=== PATIENT | male | born 1980 | race Caucasian/White ===

== ENCOUNTER 2020-07-17 21:53 | Emergency (ER) | payer BC ==
[2020-07-17] MEDS ORDERED: ACET/COD 300 MG/30 MG STARTER PACK 6 TAB BTL PO STA (23:36)
[2020-07-17] MEDS ORDERED: MORPHINE SULFATE 4 MG/ML SYRINGE IM STA (23:36)
[2020-07-17] MEDS ORDERED: LIDOCAINE 1% INJ 10MG/ML (20 ML MDV) SQ ONE (23:36)
[2020-07-17] MEDS ORDERED: SULFAMETH-TMP DS STARTER PACK 2 TAB BTL PO STA (23:36)
--- NOTE | 2020-07-17 23:38 | ED ---
Skin/Abscess/FB HPI - General Chief complaint: Skin/Abscess/Foreign Body Stated complaint: Cyst on tailbone Time Seen by Provider: 07/17/20 22:32 Source: patient Mode of arrival: ambulatory Limitations: no limitations - History of Present Illness Initial comments: 40-year-old male patient presents to the emergency department today for evaluation of abscess to his tailbone. Patient states that he has had pain, swelling, redness to the area for the last couple of days. States that it feels worse today. States he has had this in the past and has been drained. Denies any fever or chills. Denies nausea or vomiting. States he did try to poke it with a needle at nothing came out. Patient denies any recent rash, cough, shortness of breath, chest pain, abdominal pain, nausea, vomiting, diarrhea, constipation, back pain, numbness, tingling, dizziness, weakness, hematuria, dysuria, urinary urgency, urinary frequency, headache, visual changes, or any other complaints. - Related Data Previous Rx's Medication Instructions Recorded Ibuprofen [Motrin] 600 mg PO Q8HR PRN #30 tab 07/18/20 Sulfamethoxazole/Trimethoprim 1 each PO BID #20 tablet 07/18/20 [Bactrim DS 800-160 mg] Allergies Allergy/AdvReac Type Severity Reaction Status Date / Time No Known Allergies Allergy Verified 07/17/20 22:03 Review of Systems ROS Statement: Those systems with pertinent positive or pertinent negative responses have been documented in the HPI. ROS Other: All systems not noted in ROS Statement are negative. Past Medical History Past Medical History: GERD/Reflux, Hypertension History of Any Multi-Drug Resistant Organisms: None Reported Past Surgical History: Orthopedic Surgery Past Psychological History: No Psychological Hx Reported Smoking Status: Never smoker Past Alcohol Use History: None Reported Past Drug Use History: None Reported General Exam Limitations: no limitations General appearance: alert, in no apparent distress, other (This is a well- developed, well-nourished adult male patient in no acute distress. Vital signs upon presentation are temperature 98.4F, pulse 107, respirations 18, blood pressure 129/81, pulse ox 100% on room air.) Eye exam: Present: normal appearance, PERRL, EOMI. Absent: scleral icterus, conjunctival injection, periorbital swelling ENT exam: Present: normal exam, normal oropharynx, mucous membranes moist Respiratory exam: Present: normal lung sounds bilaterally. Absent: respiratory distress, wheezes, rales, rhonchi, stridor Cardiovascular Exam: Present: regular rate, normal rhythm, normal heart sounds. Absent: systolic murmur, diastolic murmur, rubs, gallop, clicks Neurological exam: Present: alert, oriented X3, CN II-XII intact Psychiatric exam: Present: normal affect, normal mood Skin exam: Present: warm, dry, intact, normal color. Absent: rash Expanded Type of lesion: Present: abscess (4x3 area of erythema and swelling noted to the sacral region. Tenderness. No drainage. No perianal tenderness noted.) Course Vital Signs 07/17/20 07/18/20 22:03 00:22 Temperature 98.4 F 98.9 F Pulse Rate 107 H 100 Respiratory 18 19 Rate Blood Pressure 129/81 152/93 O2 Sat by Pulse 100 98 Oximetry Procedures - [place] Protocol (Time Out) Procedure Performed:: Abscess incision and drainage Performing Provider: Chloé Crews Nurse: Donovan Yeung Timeout Date: 07/17/20 Timeout Time: 23:50 Patient Identification (2 identifiers required): Verbal, Arm Band, Name, Birthdate Patient/Legal Service Center Manager has Confirmed: Identity, Site, Procedure, Consent Site: Sacrum Site Marked: Yes Site Verified With Patient/Guardian: Yes Final Confirmation: Procedure, Site, Laterality - Incision & Drainage Consent Obtained: verbal consent Indication: abscess Site: other (sacral) Size (cm): 4 Anesthetic Used: lidocaine 1% Amount (mLs): 3 I&D Cleaning Method: Chloroprep Scalpel Used: #11 I&D Drainage Obtained: Pus, Blood Culture Obtained?: Yes Patient Tolerated Procedure: well, no complications Medical Decision Making - Medical Decision Making 40 year-old male patient presented to the emergency department for evaluation of swelling, redness, and pain to the sacral area. Physical exam revealed pilonoidal abscess. This was drained as documented. Patient tolerated the procedure well. Culture was obtained. Started on Bactrim. Educated regarding sitz baths and warm compresses. He is instructed to follow-up with the primary care physician for recheck in 1-2 days. He wants to discuss follow-up with surgeon with his doctor. Return parameters discussed in detail. He verbalizes understanding and agrees with this plan. My attending is Dr. Enciso. Disposition Clinical Impression: Pilonidal abscess Disposition: HOME SELF-CARE Condition: Good Instructions (If sedation given, give patient instructions): Abscess Incision and Drainage (ED), Sitz Bath (DC) Additional Instructions: Apply warm compresses or do warm sitz bath 3-4 times daily. Complete antibiotic prescription in full. Follow-up with your primary care physician for recheck in 1-2 days. Discuss referral to surgery. Return for any new, worsening, or concerning symptoms. Prescriptions: Sulfamethoxazole/Trimethoprim [Bactrim DS 800-160 mg] 1 each PO BID #20 tablet Ibuprofen [Motrin] 600 mg PO Q8HR PRN #30 tab PRN Reason: Pain Is patient prescribed a controlled substance at d/c from ED?: No Referrals: Rafa Raygoza MD [Primary Care Provider] - 1-2 days
[2020-07-18 00:23] VITALS: BP 152/93; PULSE 100; RESP 19; TEMP 98.9
== END 2020-07-18 00:22 | disposition home or self-care (01) ==
LOC: EC 21:53
DX: L05.01 Pilonidal cyst with abscess (principal); I10 Essential (primary) hypertension
CPT/HCPCS: 87070; 87205; 99283; 10080; 96372 ×2; J2270; J2001; 87077; 87186

== ENCOUNTER 2024-08-11 07:11 | Day surgery (SDC) | payer BC ==
[2024-08-10 08:41] VITALS: BMI 29.0
[2024-08-11] MEDS: IV FLUID CONTINUATION 1,000 ML IV ONE (07:38)
[2024-08-11] MEDS: LACTATED RINGERS 1,000 ML IV SCH (07:38)
[2024-08-11 07:43] VITALS: RESP 14; TEMP 97.5
[2024-08-11] MEDS ORDERED: LIDOCAINE 1% INJ 10MG/ML (20 ML MDV) ONE (08:32)
[2024-08-11] MEDS ORDERED: fentaNYL (PF) 50 MCG/ML 2 ML AMP ONE (08:32)
[2024-08-11] MEDS ORDERED: MIDAZOLAM 2 MG/2 ML VIAL ONE (08:32)
[2024-08-11] MEDS ORDERED: PROPOFOL 10 MG/ML 20 ML VIAL IV ONE (08:32)
--- NOTE | 2024-08-11 08:59 | P.PCN ---
Date of Procedure: 08/11/24 Procedure(s) Performed: Brief history: Patient is a pleasant 44-year-old white male scheduled for an elective upper endoscopy as well as colonoscopy as a part of evaluation of GERD and rectal bleeding for the last few months duration. Procedure performed: Esophagogastroduodenoscopy with biopsy Colonoscopy with biopsy Preoperative diagnosis: GERD Rectal bleeding [place]est[place]: [facility] [place] Procedure: After informed consent was obtained from the patient was brought into the endoscopy unit and IV sedation was administered by anesthesia under continuous monitoring. Initially upper endoscopy was done. The Olympus GF 160 video endoscope was inserted inserted into the mouth and esophagus intubated without any difficulty and was gradually advanced into the stomach and duodenum and carefully examined. The bulb and second part of the duodenum and mild scalloping of the mucosa and biopsies were done from this area to rule out celiac disease. The scope was then withdrawn into the stomach adequately insufflated with air and upon careful examination the antrum and body, cardia and fundus appeared normal. The scope was then withdrawn into the esophagus. Small hiatal hernia noted. The GE junction was located at 40 cm to the incisors. It appeared regular with superficial erosions consistent with LA gr olinda B reflux esophagitis. There was a 5 mm capacity mucosa which was biopsied. Rest of the esophagus appeared normal. Patient tolerated the procedure well. At this time the patient continued to remain sedation. Initial digital rectal examination revealed a mass.. Olympus CF 160 video colonoscope was then inserted into the rectum and gradually advanced to the cecum without any difficulty. Careful examination was performed as the scope was gradually being withdrawn. The prep was excellent. The cecum, ascending colon, transverse colon, descending colon, sigmoid colon appeared normal. In the distal rectum there was a 4 cm ulcerated mass approximately 4 cm from the dentate line status post multiple biopsies. Retroflexion was performed in the rectum and no lesions were noted. Patient tolerated the procedure well. Impression: 1. Upper endoscopy revealed continuation of the distal esophagus consistent with LA grade B reflux esophagitis, short segment Gamez's esophagus and small hiatal hernia 2. Colonoscopy revealed a 4 cm distal rectal ulcerated mass approximately 4 cm from the anal verge status post multiple biopsies. Recommendations: Findings of this examination were discussed with the patient as well as his family. He was advised to follow with the biopsy results. Follow-up in the office in 1 week. Start on omeprazole 20 mg daily and follow antireflux measure s.
[2024-08-11 09:06] VITALS: PULSE 66
[2024-08-11 09:21] VITALS: BP 106/66
== END 2024-08-11 09:58 | disposition home or self-care (01) ==
LOC: ORWHC2ENDO 07:11
PROVIDERS: ATTEND Internal Medicine Gastroenterology
DX: K29.50 Unspecified chronic gastritis without bleeding (principal); K62.5 Hemorrhage of anus and rectum; K21.9 Gastro-esophageal reflux disease without esophagitis; K44.9 Diaphragmatic hernia without obstruction or gangrene; I10 Essential (primary) hypertension; F90.9 Attention-deficit hyperactivity disorder, unspecified type; Z79.899 Other long term (current) drug therapy
CPT/HCPCS: 88305; 45380; 43239; J2250; J2003; J3010; J2704; 88341; 88342

== ENCOUNTER 2024-08-26 08:34 | Day surgery (SDC) | payer BC ==
[~2024-08-26 08:34] MED LIST: Pre Op ABX Message 1 EACH MISC MISCELLANE ONE
[2024-08-26] MEDS: IV FLUID CONTINUATION 1,000 ML IV ONE (08:57)
[2024-08-26 09:02] VITALS: RESP 16; TEMP 97.8
[2024-08-26] MEDS: ONDANSETRON 4 MG/2 ML VIAL IVP STA (09:28)
[2024-08-26] MEDS: DEXAMETHASONE SOD PHOSPHATE 4 MG/ML 1 ML VIAL IVP STA (09:29)
[2024-08-26] MEDS: LACTATED RINGERS 1,000 ML IV SCH (09:33)
[2024-08-26] MEDS: LIDOCAINE 1% INJ 10MG/ML (20 ML MDV) SQ ONE ×3 (09:58→10:19)
[2024-08-26] MEDS ORDERED: fentaNYL (PF) 50 MCG/ML 2 ML AMP ONE (10:04)
[2024-08-26] MEDS ORDERED: MIDAZOLAM 2 MG/2 ML VIAL ONE (10:04)
[2024-08-26] MEDS ORDERED: KETAMINE HCL IN 0.9 % NACL 50 MG/5 ML SYRINGE ONE (10:04)
[2024-08-26] MEDS ORDERED: PROPOFOL 10 MG/ML 20 ML VIAL IV ONE (10:04)
[2024-08-26] MEDS: SODIUM CHLORIDE 0.9% 50 ML with ceFAZolin 2,000 MG IV ONE (10:07)
--- NOTE | 2024-08-26 11:19 | FL ---
EXAMINATION TYPE: FL guided central line placemt DATE OF EXAM: 08/26/2024 10:52 AM COMPARISON: Pre Operative Images if available both CT/MRI or plain film CLINICAL INDICATION: Male, 44 years old with history of INSERT PORT A CATH; TECHNIQUE: FL guided central line placemt, multiple fluoroscopic images provided for procedure. DAP: 0.16518 mGym2 Gycm2 uGym2 cGycm2 or equivalent. FINDINGS: Fluoroscopic imaging for Port-A-Cath insertion no evidence for pneumothorax. Multilevel degeneration changes of the spine. IMPRESSION: 1. No evidence for intraoperative complication. 2. Please see the operative/procedural note for further details. [facility], , 08/26/2024 11:17 AM
--- NOTE | 2024-08-26 11:25 | XR ---
EXAMINATION TYPE: XR chest 1V portable DATE OF EXAM: 08/26/2024 11:10 AM COMPARISON: None CLINICAL INDICATION: Male, 44 years old with history of POST MEDIPORT INSERTION; [facility] TECHNIQUE: XR chest 1V portable Frontal view of the chest. FINDINGS: Lungs/Pleura: There is no evidence of pleural effusion, focal consolidation, or pneumothorax. Pulmonary vascularity: Unremarkable. Heart/mediastinum: Cardiomediastinal silhouette is unremarkable. Musculoskeletal: No acute osseous pathology. Other findings: None Lines/Tubes: [id number] projecting over the right hemithorax with distal tip at the cavoatrial junction. No winifred dence for pneumothorax. IMPRESSION: No acute cardiopulmonary disease/process. [facility], , 08/26/2024 11:23 AM
[2024-08-26 11:26] VITALS: BP 119/91; PULSE 66
--- NOTE | 2024-08-26 16:51 | P.OP ---
Date of Procedure: 08/26/24 Preoperative Diagnosis: rectal cancer Postoperative Diagnosis: same Procedure(s) Performed: mediport insertion Anesthesia: local Surgeon: Harjeet Tanner Pathology: none sent Condition: stable Disposition: PACU Indications for Procedure: rectal cancer Operative Findings: none Description of Procedure: Patient was brought the operating suite where she was cleaned and draped in sterile fashion. A timeout was performed and everyone agreed w/ the information recited. Next the future site was anesthetized using lidocaine w/ epinephrine.Then an introducer needle was used to cannulate the subclavian vein. Dark non pulsatile bleeding was observed. The pocket was created using a 15 blade and electrocautery. Once then was done, and the pocket was created I then grabbed a tunneling device to tunneled the catheter underneath the subcutaneous tissue a dilator sheath combo was passed under fluoroscopy and the catheter was placed through the sheath into the SVC/IVC this was then pulled back to about 30 cm. This was then cut and the Mediport was secured to the catheter a final picture was performed this was found to be satisfactory the skin was closed using 4-0 Biosyn suture in a running fashion and skin glue was placed the patient was then transported to PACU in stable condition thank you this end of this dictation
== END 2024-08-26 11:48 | disposition home or self-care (01) ==
LOC: OR 08:34
PROVIDERS: ATTEND Surgery
DX: C20 Malignant neoplasm of rectum (principal); Z45.2 Encounter for adjustment and management of vascular access device
CPT/HCPCS: 77001; 71045; 36561; C1788; J2250; J1100; J2405; J0690; J2003; J3010; J1642; J2704

== ENCOUNTER → 2024-09-21 | Outpatient (CLI) | payer BC | END | disposition home or self-care (01) | LOC: LABWHC1 10:17 | PROVIDERS: ATTEND Radiology Radiation Oncology | DX: C20 Malignant neoplasm of rectum (principal) | CPT/HCPCS: 36415; 84153 ==

== ENCOUNTER 2024-09-26 08:11 | Inpatient (IN) | payer BC ==
--- NOTE | 2024-09-26 08:51 | ED ---
General Adult HPI - General Chief complaint: Recheck/Abnormal Lab/Rx Stated complaint: Port Issues Time Seen by Provider: 09/26/24 08:38 Source: patient, RN notes reviewed Mode of arrival: ambulatory Limitations: no limitations - History of Present Illness Initial comments: 44-year-old male presenting to the emergency department with referral from his oncologist, Dr. Camejo, with complaints of his port being a painful, red and swollen. He states that yesterday evening he noticed that the area was more and painful, mildly erythematous and edematous. This morning when he woke up the pain intensified described as a stabbing sensation into his back and movement of his arm elicits severe pain to his port that radiates up into his neck. He states that when he take a deep breath this worsens the pain. He states that the pain is located around the port itself. He denies difficulty breathing, heart palpitations, fevers, chills, history of DVT or PE. States that he had a recent 46-hour chemoinfusion that was discontinued on Friday and is felt mildly nauseated after this however this is common after chemoinfusion. Is currently being treated for rectal cancer. - Related Data Home Medications Medication Instructions Recorded Confirmed lisinopriL [Zestril] 10 mg PO DAILY 08/10/24 09/26/24 Omeprazole [PriLOSEC] 20 mg PO DAILY 08/24/24 09/26/24 Allergies Allergy/AdvReac Type Severity Reaction Status Date / Time No Known Allergies Allergy Verified 09/26/24 10:50 Review of Systems ROS Statement: Those systems with pertinent positive or pertinent negative responses have been documented in the HPI. ROS Other: All systems not noted in ROS Statement are negative. Past Medical History Past Medical History: GERD/Reflux, Hypertension Additional Past Medical History / Comment(s): Coffee grounds-like emesis, bloody stools-nya blood and dark stools. History of Any Multi-Drug Resistant Organisms: None Reported Past Surgical History: Orthopedic Surgery Additional Past Surgical History / Comment(s): R shoulder surgery Past Anesthesia/Blood Transfusion Reactions: No Reported Reaction Additional Past Anesthesia/Blood Transfusion Reaction / Comment(s): No hx of blood transfusion Past Psychological History: ADD/ADHD Past Drug Use History: None Reported - Past Family History Mother Family Medical History: No Reported History General Exam Limitations: no limitations ENT exam: Present: normal exam, mucous membranes moist Neck exam: Present: normal inspection. Absent: tenderness, meningismus, ly mphadenopathy Respiratory exam: Present: normal lung sounds bilaterally, chest wall tenderness (anterior right over port erythema, tenderness). Absent: respiratory distress, wheezes, rales Cardiovascular Exam: Present: regular rate, normal rhythm, normal heart sounds. Absent: systolic murmur, diastolic murmur, rubs, gallop, clicks GI/Abdominal exam: Present: soft, normal bowel sounds. Absent: distended, tenderness, guarding, rebound, rigid Extremities exam: Present: normal inspection, full ROM, normal capillary refill. Absent: tenderness, pedal edema, joint swelling, calf tenderness Back exam: Present: normal inspection Course Vital Signs 09/26/24 09/26/24 09/26/24 08:23 13:50 14:13 Temperature 99.3 F Pulse Rate 75 95 67 Respiratory 18 20 16 Rate Blood Pressure 136/84 167/93 145/89 O2 Sat by Pulse 97 98 98 Oximetry Medical Decision Making - Medical Decision Making Was pt. sent in by a medical professional or institution (, PA, L[facility]OTHER, urgent care, hospital, or [place] health care facility...) When possible be specific @ -No Did you speak to anyone other than the patient for history (EMS, parent, family, police, friend...)? What history was obtained from this source @ -No Did you review nursing and triage notes (agree or disagree)? Why? @ -I reviewed and agree with nursing and triage notes Were old charts reviewed (outside hosp., previous admission, EMS record, old EKG, old radiological studies, urgent care reports/EKG's, [place] health care facility records)? Report findings @ -No old charts were reviewed Differential Diagnosis (chest pain, altered mental status, abdominal pain women, abdominal pain men, vaginal bleeding, weakness, fever, dyspnea, syncope, headache, dizziness, GI bleed, back pain, seizure, CVA, palpatations, mental health, musculoskeletal)? @ -Differential Fever: Pneumonia, viral URI, endocarditis, myocarditis, pericarditis, otitis, sinusitis, peritonsillar Abscess, retropharyngeal Abscess, epiglottitis, peritonitis, appendicitis, Shamika cystitis, diverticulitis, hepatitis, colitis, UTI, PID, TOA, pyelonephritis, prostatitis, epididymitis, meningitis, encephalitis, pulmonary embolism, CVA, thyroid storm, pancreatitis, adrenal crisis, cavernous sinus thrombosis, this is not meant to be an all-inclusive list. EKG interpreted by me (3pts min.). @ -None X-rays interpreted by me (1pt min.). @ -Chest x-ray reveals no acute cardiopulmonary process with a stable right chest subclavian approach Mediport catheter with distal tip in the right atrium CT interpreted by me (1pt min.). @ -None done U/S interpreted by me (1pt. min.). @ -None done What testing was considered but not performed or refused? (CT, X-rays, U/S, labs)? Why? @ -None What meds were considered but not given or refused? Why? @ -None Did you discuss the management of the patient with other professionals (professionals i.e. , PA, LAY BROTHER, lab, RT, psych nurse, hospital social worker, machine feeder floorperson, teacher, unclaimed property officer, caser up)? Give summary @ -I spoke with Dr. Reyes, who agreed to admit the patient with infectious disease on consult Was smoking cessation discussed for >3mins.? @ -No Was critical care preformed (if so, how long)? @ -No Were there social determinants of health that impacted care today? How? (Homelessness, low income, unemployed, alcoholism, drug addiction, transportation, low edu. Level, literacy, decrease access to med. care, fpc, rehab)? @ -No Was there de-escalation of care discussed even if they declined (Discuss DNR or withdrawal of care, Hospice)? DNR status @ -No What co-morbidities impacted this encounter? (DM, HTN, Smoking, COPD, CAD, Cancer, CVA, ARF, Chemo, Hep., AIDS, mental health diagnosis, sleep apnea, morbid obesity)? @ -cancer Was patient admitted / discharged? Hospital course, mention meds given and route, prescriptions, significant lab abnormalities, going to OR and other pertinent info. @ -Admitted. 44-year-old male presented to the ER with concerns of port catheter pain and was referred by oncologist. Patient's initial vitals are stable. Port cath over the right anterior chest is tender to the touch with mild surrounding erythema and edema. Patient is provided with pain medication. There is no leukocytosis on examination, CRP is not elevated, lactic acid nonelevated. Ultrasound imaging reveals no evidence of DVT. Chest x-ray reveal s appropriate placement of catheter wires. With concern for potential cellulitis despite normal lab testing patient will be admitted with broad- spectrum antibiotics in place. Consultation to infectious disease placed. Patient is admitted to Dr. Reyes. Undiagnosed new problem with uncertain prognosis? @ -No Drug Therapy requiring intensive monitoring for toxicity (Heparin, Nitro, Insulin, Cardizem)? @ -No Were any procedures done? @ -No Diagnosis/symptom? @ -port cath cellulitis Acute, or Chronic, or Acute on Chronic? @ -acute Uncomplicated (without systemic symptoms) or Complicated (systemic symptoms)? @ -uncomplicated Side effects of treatment? @ -No Exacerbation, Progression, or Severe Exacerbation? @ -No Poses a threat to life or bodily function? How? (Chest pain, [place], [place], pneumonia, PE, COPD, DKA, ARF, appy, cholecystitis, CVA, Diverticulitis, Homicidal, Suicidal, threat to staff... and all critical care pts) @ -No - Lab Data Result diagrams: 09/26/24 08:55 09/26/24 08:55 Lab Results 09/26/24 09/26/24 09/26/24 Range/Units 08:55 08:55 08:55 WBC 3.35 L (4.50-10.00) 10*3/uL RBC 3.95 L (4.40-5.60) 10*6/uL Hgb 13.2 (13.0-17.0) g/dL Hct 37.0 L (39.6-50.0) % MCV 93.7 (80.0-97.0) fL MCH 33.4 H (27.0-32.0) pg MCHC 35.7 (32.0-37.0) g/dL Plt Count 217 (140-440) 10*3/uL MPV 8.7 L (9.5-12.2) fL Immature Gran % (Auto) 0.3 % Neutrophils % 54.3 % Lymphocytes % 28.4 % Monocytes % 10.4 % Eosinophils % 6.0 % Basophils % 0.6 % Immature Gran # 0.01 (0.00-0.04) 10*3/uL Neutrophils # 1.82 (1.80-7.70) 10*3/uL Lymphocytes # 0.95 (0.90-5.00) 10*3/uL Monocytes # 0.35 (0.20-1.00) 10*3/uL Eosinophils # 0.20 (0.04-0.35) 10*3/uL Basophils # 0.02 (0.00-0.10) 10*3/uL Sodium 139 (137-145) mmol/L Potassium 4.1 (3.5-5.1) mmol/L Chloride 108 H (98-107) mmol/L Carbon Dioxide 21 L (22-30) mmol/L Anion Gap 10 mmol/L BUN 12 (9-20) mg/dL Creatinine 0.84 (0.66-1.25) mg/dL Est GFR (CKD-EPI)AfAm >90 (>60 ml/min/1.73 sqM) Est GFR (CKD-EPI)NonAf >90 (>60 ml/min/1.73 sqM) Glucose 145 H (74-99) mg/dL Plasma Lactic Acid Nick 0.6 L (0.7-2.0) mmol/L Calcium 9.4 (8.4-10.2) mg/dL Total Bilirubin 1.0 (0.2-1.3) mg/dL AST 27 (17-59) U/L ALT 41 (4-49) U/L Alkaline Phosphatase 56 (38-126) U/L C-Reactive Protein <0.5 (<1.0) mg/dL Total Protein 7.1 (6.3-8.2) g/dL Albumin 4.8 (3.5-5.0) g/dL Disposition Clinical Impression: Cellulitis Disposition: ADMITTED IP TO THIS [facility] Condition: Stable Decision to Admit Reason: Admit from EC Decision Date: 09/26/24 Decision Time: 11:46
[2024-09-26 09:05] LABS: Basophils # (A) 0.02 10*3/uL (0.00-0.10); Basophils % (A) 0.6 %; Eosinophils # (A) 0.20 10*3/uL (0.04-0.35); Eosinophils % (A) 6.0 %; HCT 37.0 % (39.6-50.0); HGB 13.2 g/dL (13.0-17.0); Lymphocytes # (A) 0.95 10*3/uL (0.90-5.00); Lymphocytes % (A) 28.4 %; MCH 33.4 pg (27.0-32.0); MCHC 35.7 g/dL (32.0-37.0); MCV 93.7 fL (80.0-97.0); Monocytes # (A) 0.35 10*3/uL (0.20-1.00); Monocytes % (A) 10.4 %; Neutrophils # (A) 1.82 10*3/uL (1.80-7.70); Neutrophils % (A) 54.3 %; Platelet Count 217 10*3/uL (140-440); RBC 3.95 10*6/uL (4.40-5.60); RDW 11.9 % (11.5-14.5); WBC 3.35 10*3/uL (4.50-10.00)
[2024-09-26] MEDS: HYDROmorphone 1 MG/ML 1 ML SYRINGE IVP STA (09:09)
[2024-09-26 09:16] LABS: ALT 41 U/L (4-49); AST 27 U/L (17-59); African American GFR (CKD) >90 (>60 ml/min/1.73 sqM); Albumin 4.8 g/dL (3.5-5.0); Alkaline Phosphatase 56 U/L (38-126); Anion Gap 10 mmol/L; Blood Urea Nitrogen 12 mg/dL (9-20); Calcium 9.4 mg/dL (8.4-10.2); Carbon Dioxide 21 mmol/L (22-30); Chloride 108 mmol/L (98-107); Glucose 145 mg/dL (74-99); Non-African American GFR(CKD) >90 (>60 ml/min/1.73 sqM); Potassium 4.1 mmol/L (3.5-5.1); Sodium 139 mmol/L (137-145); Total Protein 7.1 g/dL (6.3-8.2)
--- NOTE | 2024-09-26 09:22 | XR ---
EXAMINATION TYPE: XR chest 2V DATE OF EXAM: 09/26/2024 9:18 AM COMPARISON: Chest radiographs from 08/26/2024 TECHNIQUE: XR chest 2V Frontal and lateral views of the chest. CLINICAL INDICATION:Male, 44 years old with history of r sided port pain, ensure proper placement; FINDINGS: Lungs/Pleura: There is no evidence of pleural effusion, focal consolidation, or pneumothorax. Pulmonary vascularity: Unremarkable. Heart/mediastinum: Cardiomediastinal silhouette is unremarkable. Musculoskeletal: No acute osseous pathology. Other findings: None Lines/Tubes: Stable right chest wall subclavian approach Mediport catheter with distal tip in the right atrium. Th e catheter appears intact. IMPRESSION: 1. No acute cardiopulmonary disease/process. 2. Stable right chest subclavian approach Mediport catheter with distal tip in the right atrium. Cat heter appears intact. [facility], , 09/26/2024 9:20 AM
--- NOTE | 2024-09-26 10:03 | US ---
EXAMINATION TYPE: US venous doppler duplex UE RT DATE OF EXAM: 09/26/2024 COMPARISON: Chest radiograph 09/26/2024 CLINICAL INDICATION: Male, 44 years old with history of r sided port pain, on chemo, r/o clot; Pain a nd swelling in right portacatheter. TECHNIQUE: Grayscale, color Doppler and spectral Doppler imaging of the upper extremity. SIDE PERFORMED: Right port VESSELS IMAGED: IJV Subclavian Vein FINDINGS: Right Arm: Scanned right port with no thrombus visualized around catheter. Flow visualized in IJV and Subclavian Vein. IMPRESSION: No evidence for DVT. [facility], , 09/26/2024 10:00 AM
[2024-09-26] MEDS ORDERED: VANCOMYCIN IV PER PHARMACY 1 EACH MISC MISCELLANE PRN (11:44)
[2024-09-26] MEDS ORDERED: NALOXONE 0.4 MG/ML 1 ML VIAL IV PRN (11:44)
[2024-09-26] MEDS: MORPHINE SULFATE 4 MG/ML SYRINGE IV PRN (12:17)
[2024-09-26] MEDS: cefTRIAXone IN SWFI 1,000 MG/10 ML SYRINGE IVP STA (12:17)
[2024-09-26] MEDS: VANCOMYCIN 1,500 MG in SODIUM CHLORIDE 0.9% 500 ML 500 ML IVPB STA (12:18)
[2024-09-26] MEDS: ACETAMINOPHEN TAB 325 MG TAB PO PRN (13:57)
[2024-09-26] MEDS: HYDROcodone/APAP 5-325MG 1 EACH TAB PO PRN (13:57)
--- NOTE | 2024-09-26 16:39 | CT ---
EXAMINATION TYPE: CT chest wo con DATE OF EXAM: 09/26/2024 4:31 PM COMPARISON: None. CLINICAL INDICATION: Male, 44 years old with history of meditport cellulitis upper chest/neck; PHH, i nfection around port in right upper chest TECHNIQUE: Multiple axial images were obtained through the chest. Sagittal and coronal reformats were created for review. MIP was performed on a separate workstation. CT DLP: 387.1 mGycm, Automated exposure control for dose reduction was used. FINDINGS: LUNGS/ PLEURA: The lung parenchyma appears unremarkable. AIRWAY: Patent and unremarkable. HEART: Size within normal limits. MEDIASTINUM: No gross evidence of adenopathy. VASCULATURE: No aortic aneurysm. The chest wall port catheter distal catheter tip terminating in the right atrium. MUSCULOSKELETAL: No acute osseous abnormalities. Old left-sided rib fracture deformities. SOFT TISSUES/LYMPH NODES: No pathologic lymphadenopathy. Trace fat stranding surrounding the right ch est wall Mediport without drainable fluid collection/abscess. LOWER NECK: No significant findings. UPPER ABDOMEN: No significant findings. IMPRESSION: Trace fat stranding/inflammation surrounding the right chest wall MediPort catheter. No drainable flu id collection/abscess. Recommend clinical correlation for cellulitis. [facility], , 09/26/2024 4:37 PM
--- NOTE | 2024-09-26 18:16 | P.CONS ---
History of Present Illness - Reason for Consult Consult date: 09/26/24 Cellulitis of the port site Requesting physician: iTffani Preston - Chief Complaint Right-sided chest wall and neck pain x 1 day - History of Present Illness Patient is a 44-year-old male with a past medical history significant for reflux hypertension recent diagnosis of rectal cancer for the patient is started on chemotherapy and did have a right sided Mediport placement on 08/26/2024 patient now presenting to the ER for evaluation of pain and swelling to the right chest wall that the pain started yesterday pain and swelling has been extending to the right side of the neck patient is currently pain to be sharp moderate intensity with associated swelling redness but no drainage patient having of some chills and did have low-grade fever of 99.3 on arrival to the ER this morning patient was nontachycardic hypotensive or hypoxic no need for supplemental oxygen patient however could have 3.35 creatinine 0.84 electrolyte has been normal liver enzymes are normal patient did have a chest x- ray no acute cardiopulmonary disease process stable right chest subclavian approach Mediport catheter with the distal tip in the right atrium catheter appears patent he did have venous Doppler study that was negative for DVT patient was started on vancomycin blood cultures have been obtained infectious disease was consulted for further management of antibiotic therapy Review of Systems Positive point and negatives has been mentioned in the HPI, complete review of systems was performed and all other systems are negative Past Medical History Past Medical History: GERD/Reflux, Hypertension Additional Past Medical History / Comment(s): Coffee grounds-like emesis, bloody stools-nya blood and dark stools. History of Any Multi-Drug Resistant Organisms: None Reported Past Surgical History: Orthopedic Surgery Additional Past Surgical History / Comment(s): R shoulder surgery Past Anesthesia/Blood Transfusion Reactions: No Reported Reaction Additional Past Anesthesia/Blood Transfusion Reaction / Comm: No hx of blood transfusion Past Psychological History: ADD/ADHD Past Drug Use History: None Reported - Past Family History Mother Family Medical History: No Reported History Medications and Allergies Home Medications Medication Instructions Recorded Confirmed Type lisinopriL [Zestril] 10 mg PO DAILY 08/10/24 09/26/24 History Omeprazole [PriLOSEC] 20 mg PO DAILY 08/24/24 09/26/24 History Allergies Allergy/AdvReac Type Severity Reaction Status Date / Time No Known Allergies Allergy Verified 09/26/24 10:50 Physical Exam Vitals: Vital Signs Temp Pulse Resp BP Pulse Ox 09/26/24 08:23 99.3 F 75 18 136/84 97 Intake and Output 09/25/24 09/26/24 09/26/24 22:59 06:59 14:59 Other: Weight 81.647 kg GENERAL DESCRIPTION: Elderly male up in the room, no distress. No tachypnea or accessory muscle of respiration use. HEENT: Shows Pallor , no scleral icterus. Oral mucous membrane is dry. No pharyngeal erythema or thrush NECK: Trachea central, no thyromegaly. LUNGS: Unlabored breathing. Clear to auscultation anteriorly. No wheeze or crackle. HEART: S1, S2, regular rate and rhythm. No loud murmur ABDOMEN: Soft, no tenderness , guarding or rigidity, no organomegaly EXTREMITIES: No edema of feet. SKIN: Patient did have some swelling redness to the right side of the chest wall some extension to the neck area no drainage NEUROLOGICAL: The patient is awake, alert, oriented x3, mood and affect normal. Results CBC & Chem 7: 09/26/24 08:55 09/26/24 08:55 Labs: Abnormal Lab Results - Last 24 Hours (Table) 09/26/24 09/26/24 09/26/24 Range/Units 08:55 08:55 08:55 WBC 3.35 L (4.50-10.00) 10*3/uL RBC 3.95 L (4.40-5.60) 10*6/uL Hct 37.0 L (39.6-50.0) % MCH 33.4 H (27.0-32.0) pg MPV 8.7 L (9.5-12.2) fL Chloride 108 H (98-107) mmol/L Carbon Dioxide 21 L (22-30) mmol/L Glucose 145 H (74-99) mg/dL Plasma Lactic Acid Nick 0.6 L (0.7-2.0) mmol/L Assessment and Plan (1) Port or reservoir infection Current Visit: Yes Status: Acute Code(s): T80.212A - LOCAL INFECTION DUE TO CENTRAL VENOUS CATHETER, INIT ENCNTR SNOMED Code(s): 684933951 (2) Cellulitis of chest wall Current Visit: Yes Status: Acute Code(s): L03.313 - CELLULITIS OF CHEST WALL SNOMED Code(s): 78118758 Plan: 1patient presented hospital with the pain and swelling along with redness to the right chest wall Mediport site with some extension to the right side of the neck concerning for Mediport infection likely from gram-positive skin catie patient did have Doppler ultrasound that was negative for any DVT to the affected area. 2blood culture obtained results will be followed. 3patient empirically treated with vancomycin pharmacy dose while watching his kidney function and culture closely. Question concern answered We will follow on clinical condition and cultures to further adjust medication if needed Thank you for this consultation we will follow the patient along with you Dictation was produced using [employer] dictation software. please excuse any grammatical, word or spelling errors. Time with Patient: Greater than 30
[2024-09-26] MEDS: VANCOMYCIN 1,500 MG in SODIUM CHLORIDE 0.9% 500 ML 500 ML IVPB SCH (20:14)
[2024-09-26] MEDS: ONDANSETRON 4 MG/2 ML VIAL IVP PRN (20:14)
[2024-09-27 07:50] LABS: Basophils # (A) 0.02 X 10*3/uL (0.00-0.10); Basophils % (A) 0.5 %; Eosinophils # (A) 0.12 X 10*3/uL (0.04-0.35); Eosinophils % (A) 3.3 %; HCT 35.5 % (39.6-50.0); HGB 11.7 g/dL (13.0-17.0); Immature Grans, Automated 0.50 %; Lymphocytes # (A) 0.59 X 10*3/uL (0.90-5.00); Lymphocytes % (A) 16.1 %; MCH 31.9 pg (27.0-32.0); MCHC 33.0 g/dL (32.0-37.0); MCV 96.7 FL (80.0-97.0); Monocytes # (A) 0.20 X 10*3/uL (0.20-1.00); Monocytes % (A) 5.5 %; NRBC Per 100 WBC 0 X 10*3/uL (0.00-0.01); Neutrophils # (A) 2.71 X 10*3/uL (1.80-7.70); Neutrophils % (A) 74.1 %; Platelet Count 194 X 10*3/uL (140-440); RBC 3.67 X 10*6/uL (4.40-5.60); RDW 12.5 % (11.5-14.5); WBC 3.66 X 10*3/uL (4.50-10.00)
[2024-09-27 08:02] LABS: ALT 30 U/L (10-49); AST 15 U/L (14-35); Albumin 4.3 g/dL (3.8-4.9); Albumin/Globulin Ratio 2.26 Ratio (1.60-3.17); Alkaline Phosphatase 54 U/L (41-126); Anion Gap 9.10 mmol/L (4.00-12.00); BUN/Creat Ratio 6.40 Ratio (12.00-20.00); Blood Urea Nitrogen 6.4 mg/dL (9.0-27.0); Calcium 8.6 mg/dL (8.7-10.3); Carbon Dioxide 23.9 mmol/L (21.6-31.8); Chloride 103 mmol/L (96-109); Globulin 1.9 g/dL (1.6-3.3); Glucose 111 mg/dL (70-110); Potassium 4.5 mmol/L (3.5-5.5); Sodium 136 mmol/L (135-145); Total Protein 6.2 g/dL (6.2-8.2)
--- NOTE | 2024-09-27 11:59 | P.GSCN ---
History of Present Illness Consult date: 09/27/24 History of present illness: CHIEF COMPLAINT: Mediport infection HISTORY OF PRESENT ILLNESS: This is a 44-year-old male with known rectal cancer. He is undergoing chemotherapy. Patient reports his last chemotherapy was Friday but he also is using the pump with the treatment on Friday. Patient reports he started having pain and redness at the port site that went up into his neck on Friday night. Symptoms continued to worsen he came to the ER for further evaluation. He had a CT scan of the chest completed which reported trace fat stranding and inflammation at the right chest wall port. Patient was started on antibiotics for I port infection. He is currently NPO. Surgical service was consulted for infected Mediport. Patient had the Mediport placed on August 26, 2024. PAST MEDICAL HISTORY: See below PAST SURGICAL HISTORY: See below MEDICATIONS: See below ALLERGIES: See below SOCIAL HISTORY: No illicit drug use. REVIEW OF SYSTEMS: CONSTITUTIONAL: Denies fever or chills. HEENT: Denies blurred vision, vision changes, or eye pain. Denies hemoptysis CARDIOVASCULAR: Denies chest pain or pressure. RESPIRATORY: No shortness of breath. GASTROINTESTINAL: See HPI for pertinent findings HEMATOLOGIC: Denies bleeding disorders. GENITOURINARY: Denies any blood in urine or increased urinary frequency. SKIN: Denies pruitis. Denies rash. PHYSICAL EXAM: VITAL SIGNS: Reviewed GENERAL: Well-developed in no acute distress. HEENT: No sclera icterus. Extraocular movements grossly intact. Moist buccal mucosa. Head is atraumatic, normocephalic. No nasal drainage. CHEST: Right chest wall port site with tenderness, induration and erythema. Erythema radiates up into the neck. Patient also having tenderness in the right side of his neck. ABDOMEN: Soft. Nondistended. nontender NEUROLOGIC: Alert and oriented. Cranial nerves II through XII grossly intact. LABORATORY DATA: WBC 3.66 HGB 13 to 11.7 plt 194 Na 136 K 4.5 cr 1.0 IMAGING: Chest CT reports trace fat stranding/inflammation surrounding the right chest wall MediPort catheter. No drainable fluid collection or abscess. Recommend clinical correlation for cellulitis. ASSESSMENT: 1. Infected right chest wall Mediport with cellulitis 2. Known rectal cancer PLAN: - Patient scheduled for removal of Mediport today with Dr. Pizarro - Keep patient n.p.o. - Continue antibiotics per ID service - Continue pain management Physician Budget Manager note has been reviewed by physician. Signing provider agrees with the documented findings, assessment, and plan of care. Past Medical History Past Medical History: GERD/Reflux, Hypertension Additional Past Medical History / Comment(s): Coffee grounds-like emesis, bloody stools-nya blood and dark stools. History of Any Multi-Drug Resistant Organisms: None Reported Past Surgical History: Orthopedic Surgery Additional Past Surgical History / Comment(s): R shoulder surgery Past Anesthesia/Blood Transfusion Reactions: No Reported Reaction Additional Past Anesthesia/Blood Transfusion Reaction / Comm: No hx of blood transfusion Past Psychological History: ADD/ADHD Past Drug Use History: None Reported - Past Family History Mother Family Medical History: No Reported History Medications and Allergies Home Medications Medication Instructions Recorded Confirmed Type lisinopriL [Zestril] 10 mg PO DAILY 08/10/24 09/26/24 History Omeprazole [PriLOSEC] 20 mg PO DAILY 08/24/24 09/26/24 History Allergies Allergy/AdvReac Type Severity Reaction Status Date / Time No Known Allergies Allergy Verified 09/26/24 10:50 Surgical - Exam Vital Signs Temp Pulse Resp BP Pulse Ox 99.3 F 75 18 136/84 97 09/26/24 08:23 09/26/24 08:23 09/26/24 08:23 09/26/24 08:23 09/26/24 08:23 Results - Labs 09/27/24 04:32 09/27/24 04:32 Abnormal Lab Results - Last 24 Hours (Table) 09/27/24 09/27/24 Range/Units 04:32 04:32 WBC 3.66 L (4.50-10.00) X 10*3/uL RBC 3.67 L (4.40-5.60) X 10*6/uL Hgb 11.7 L (13.0-17.0) g/dL Hct 35.5 L (39.6-50.0) % Lymphocytes # 0.59 L (0.90-5.00) X 10*3/uL BUN 6.4 L (9.0-27.0) mg/dL BUN/Creatinine Ratio 6.40 L (12.00-20.00) Ratio Glucose 111 H (70-110) mg/dL Calcium 8.6 L (8.7-10.3) mg/dL Diabetes panel 09/27/24 Range/Units 04:32 Sodium 136 (135-145) mmol/L Potassium 4.5 (3.5-5.5) mmol/L Chloride 103 (96-109) mmol/L Carbon Dioxide 23.9 (21.6-31.8) mmol/L BUN 6.4 L (9.0-27.0) mg/dL Creatinine 1.0 (0.6-1.5) mg/dL Glucose 111 H (70-110) mg/dL Calcium 8.6 L (8.7-10.3) mg/dL AST 15 (14-35) U/L ALT 30 (10-49) U/L Alkaline Phosphatase 54 (41-126) U/L Total Protein 6.2 (6.2-8.2) g/dL Albumin 4.3 (3.8-4.9) g/dL Calcium panel 09/27/24 Range/Units 04:32 Calcium 8.6 L (8.7-10.3) mg/dL Albumin 4.3 (3.8-4.9) g/dL Pituitary panel 09/27/24 Range/Units 04:32 Sodium 136 (135-145) mmol/L Potassium 4.5 (3.5-5.5) mmol/L Chloride 103 (96-109) mmol/L Carbon Dioxide 23.9 (21.6-31.8) mmol/L BUN 6.4 L (9.0-27.0) mg/dL Creatinine 1.0 (0.6-1.5) mg/dL Glucose 111 H (70-110) mg/dL Calcium 8.6 L (8.7-10.3) mg/dL Adrenal panel 09/27/24 Range/Units 04:32 Sodium 136 (135-145) mmol/L Potassium 4.5 (3.5-5.5) mmol/L Chloride 103 (96-109) mmol/L Carbon Dioxide 23.9 (21.6-31.8) mmol/L BUN 6.4 L (9.0-27.0) mg/dL Creatinine 1.0 (0.6-1.5) mg/dL Glucose 111 H (70-110) mg/dL Calcium 8.6 L (8.7-10.3) mg/dL Total Bilirubin 1.0 (0.3-1.2) mg/dL AST 15 (14-35) U/L ALT 30 (10-49) U/L Alkaline Phosphatase 54 (41-126) U/L Total Protein 6.2 (6.2-8.2) g/dL Albumin 4.3 (3.8-4.9) g/dL
[2024-09-27] MEDS: VANCOMYCIN TROUGH DUE 1 EACH MISC MISCELLANE ONE (12:21)
--- NOTE | 2024-09-27 19:19 | P.CONS ---
History of Present Illness - Reason for Consult Consult date: 09/27/24 infected port, hx rectal cancer Requesting physician: Tiffani Preston - Chief Complaint infected port - History of Present Illness Patient is a 44 year old male with a history of rectal cancer who follows with Dr. Gina Camejo. He initially presented with blood in stools X 6 months. Having increased straining with BMs and thinning caliber stools X 2 months. 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 CT Scan of CAP showed no distant mets, stage III rectal cancer. Recommended Total Neoadjuvant therapt (MELODY) and FOLFOX X 8 cycles followed by likely concurrent XRT/Chemotherapy (Xeloda) followed by surgery. Completed cycle 2 of FOLFOX on 09/20/24. Patient presented to the emergency room with erythema and pain around his Mediport site. Patient states on Friday he began noticing increasing erythema, swelling, firmness around port, and started having severe pain at site that radiated to his right side of neck, which caused him to present for further evaluation. Doppler of right upper extremity was negative for DVT. CT chest without contrast showed trace fat stranding/inflammation surrounding the right chest wall Mediport catheter. No fluid collection or abscess noted. Patient was started on IV antibiotics. Infectious disease and general surgery consulted. Patient has been afebrile. Blood cultures pending. WBC 3.6, ANC 2.71. Hemoglobin 11.7, platelets 194,000. At today's visit patient is reporting improvement in pain, and erythema and firmness around port site. Review of Systems 10 point ROS is negative except as stated in the HPI Past Medical History Past Medical History: GERD/Reflux, Hypertension Additional Past Medical History / Comment(s): Coffee grounds-like emesis, bloody stools-nya blood and dark stools. History of Any Multi-Drug Resistant Organisms: None Reported Past Surgical History: Orthopedic Surgery Additional Past Surgical History / Comment(s): R shoulder surgery Past Anesthesia/Blood Transfusion Reactions: No Reported Reaction Additional Past Anesthesia/Blood Transfusion Reaction / Comm: No hx of blood transfusion Past Psychological History: ADD/ADHD Past Drug Use History: None Reported - Past Family History Mother Family Medical History: No Reported History Medications and Allergies Home Medications Medication Instructions Recorded Confirmed Type lisinopriL [Zestril] 10 mg PO DAILY 08/10/24 09/26/24 History Omeprazole [PriLOSEC] 20 mg PO DAILY 08/24/24 09/26/24 History Allergies Allergy/AdvReac Type Severity Reaction Status Date / Time No Known Allergies Allergy Verified 09/26/24 10:50 Physical Exam Vitals: Vital Signs Temp Pulse Pulse Resp BP BP Pulse Ox 09/27/24 07:08 98.5 F 79 16 127/73 97 09/27/24 06:36 99.4 F 09/27/24 01:13 99.5 F 83 16 118/69 96 09/26/24 19:20 98.8 F 68 18 128/80 98 09/26/24 14:13 67 16 145/89 98 09/26/24 14:00 98.5 F 64 16 125/78 99 09/26/24 13:50 95 20 167/93 98 Intake and Output 09/26/24 09/27/24 09/27/24 22:59 06:59 14:59 Intake Total 1080 Balance 1080 Intake: Oral 1080 Other: Voiding Method Toilet # Voids 4 2 - Constitutional General appearance: average body habitus, no acute distress - EENT Eyes: anicteric sclerae, EOMI ENT: hearing grossly normal - Respiratory breathing is even and unlabored - Integumentary mild erythema around port site, no edema or tenderness noted - Musculoskeletal Musculoskeletal: strength equal bilaterally - Psychiatric Psychiatric: A&O x's 3 Results CBC & Chem 7: 09/27/24 04:32 09/27/24 04:32 Labs: Abnormal Lab Results - Last 24 Hours (Table) 09/27/24 09/27/24 Range/Units 04:32 04:32 WBC 3.66 L (4.50-10.00) X 10*3/uL RBC 3.67 L (4.40-5.60) X 10*6/uL Hgb 11.7 L (13.0-17.0) g/dL Hct 35.5 L (39.6-50.0) % Lymphocytes # 0.59 L (0.90-5.00) X 10*3/uL BUN 6.4 L (9.0-27.0) mg/dL BUN/Creatinine Ratio 6.40 L (12.00-20.00) Ratio Glucose 111 H (70-110) mg/dL Calcium 8.6 L (8.7-10.3) mg/dL Chest x-ray: report reviewed CT scan - chest: report reviewed Venous US: report reviewed Assessment and Plan (1) Rectal cancer Current Visit: Yes Status: Acute Priority: Medium Code(s): C20 - MALIGNANT NEOPLASM OF RECTUM SNOMED Code(s): 507784790 (2) Cellulitis of chest wall Current Visit: Yes Status: Acute Priority: High Code(s): L03.313 - CELLULITIS OF CHEST WALL SNOMED Code(s): 26317095 (3) Port or reservoir infection Current Visit: Yes Status: Acute Priority: High Code(s): T80.212A - LOCAL INFECTION DUE TO CENTRAL VENOUS CATHETER, INIT ENCNTR SNOMED Code(s): 389444593 Plan: Cellulitis right chest wall: Presented to the emergency room with erythema, edema and pain around his Mediport site. -Doppler of right upper extremity was negative for DVT -CT chest without contrast showed trace fat stranding/inflammation surrounding the right chest wall Mediport catheter. No fluid collection or abscess noted. -Blood cultures pending -Currently on IV Vancomycin -Infectious disease and general surgery consulted. -For now, no plan to remove mediport, per ID continue IV abx and await cultures -White counts mildly decreased but adequate. Continue to monitor CBC Rectal cancer: -Oncology history as dictated in the HPI -Completed cycle 2 of FOLFOX on 09/20/24 -Treatment will be on hold until infection is adequately treated. Will f/u on ID abx recommendations
[2024-09-27] MEDS: IBUPROFEN 400 MG TAB PO PRN (19:45)
[2024-09-27] MEDS: AMPICILLIN-SULBACTAM 1.5 GM in SODIUM CHLORIDE 0.9% 50 ML IVPB SCH (20:17)
--- NOTE | 2024-09-27 22:34 | P.PN ---
Subjective Progress Note Date: 09/27/24 Principal diagnosis: Reason for follow-up is fever/Mediport site cellulitis Patient is a 44-year-old male with a past medical history significant for reflux hypertension recent diagnosis of rectal cancer for the patient is started on chemotherapy and did have a right sided Mediport placement on 08/26/2024 patient now presenting to the ER for evaluation of pain and swelling to the right chest wall and has been diagnosed with a Mediport site cellulitis CT did show cellulitis no evidence of any abscess. On today's evaluation that is 09/27/2024, patient did have resolution of his fever has been afebrile this morning, patient is breathing comfortably and is currently on room air, patient denies having any chest pain and cough, patient denies nausea vomiting and mention improvement of the discomfort in the right chest wall. Patient white count is 3.66 creatinine is 1.0 blood cultures currently pending Objective - Vital Signs Vital signs: Vital Signs Temp 98.5 F 09/27/24 07:08 Pulse 79 09/27/24 07:08 Resp 16 09/27/24 07:08 BP 127/73 09/27/24 07:08 Pulse Ox 97 09/27/24 07:08 FiO2 Intake & Output 09/26/24 09/27/24 09/27/24 18:59 06:59 18:59 Intake Total 1080 Balance 1080 Weight 81.647 kg Intake: Oral 1080 Other: Voiding Method Toilet Toilet # Voids 4 2 - Exam GENERAL DESCRIPTION: Middle-age male lying in bed in no distress RESPIRATORY SYSTEM: Unlabored breathing , decreased breath sounds at bases HEART: S1 S2 regular rate and rhythm , Right-sided chest wall Mediport site erythema has decreased there is no drainage no cord feeling ABDOMEN: Soft , no tenderness EXTREMITIES: No edema feet - Labs CBC & Chem 7: 09/27/24 04:32 09/27/24 04:32 Labs: Abnormal Lab Results - Last 24 Hours (Table) 09/27/24 09/27/24 Range/Units 04:32 04:32 WBC 3.66 L (4.50-10.00) X 10*3/uL RBC 3.67 L (4.40-5.60) X 10*6/uL Hgb 11.7 L (13.0-17.0) g/dL Hct 35.5 L (39.6-50.0) % Lymphocytes # 0.59 L (0.90-5.00) X 10*3/uL BUN 6.4 L (9.0-27.0) mg/dL BUN/Creatinine Ratio 6.40 L (12.00-20.00) Ratio Glucose 111 H (70-110) mg/dL Calcium 8.6 L (8.7-10.3) mg/dL Assessment and Plan (1) Port or reservoir infection Current Visit: Yes Status: Acute Priority: High Code(s): T80.212A - LOCAL INFECTION DUE TO CENTRAL VENOUS CATHETER, INIT ENCNTR SNOMED Code(s): 631452797 (2) Cellulitis of chest wall Current Visit: Yes Status: Acute Priority: High Code(s): L03.313 - CELLULITIS OF CHEST WALL SNOMED Code(s): 77901610 Plan: 1patient presented hospital with the pain and swelling along with redness to the right chest wall Mediport site with some extension to the right side of the neck concerning for Mediport infection likely from gram-positive skin catie patient did have Doppler ultrasound that was negative for any DVT to the affected area. 2blood culture obtained which are currently pending 3patient did have resolution of his fever and is feeling better as well as pain to the right chest wall no evidence of any abscess on the CT may be able to still watch the port especially if the culture remains to be negative this has been discussed with the surgical team to hold on removal of the port at this time and continue with vancomycin question concern answered Dictation was produced using [employer] dictation software. please excuse any grammatical, word or spelling errors. Time with Patient: Less than 30
--- NOTE | 2024-09-28 01:00 | PN ---
PROGRESS NOTE SUBJECTIVE: A 44-year-old white male in the hospital with shortness of breath, chest pain, unable to ambulate due to significant chest pain history of rectal cancer, chemotherapy. He develops redness and swelling in his port in his right anterior chest with fluctuance of positive abscess. He was admitted to the hospital and possible removal of the port. OBJECTIVE: CARDIOVASCULAR: S1, S2. LUNGS: Clear. GI: Soft. SKIN: Inside of the wound, pressure. ASSESSMENT AND PLAN: Pain is some better, sitting around. Continue on pain control, IV antibiotics. Prognosis is guarded. Ambulate as tolerated. MMODL / IJN: [id number] /
[2024-09-28 05:58] LABS: African American GFR (CKD) >90 (>60 ml/min/1.73 sqM); Non-African American GFR(CKD) >90 (>60 ml/min/1.73 sqM)
[2024-09-28 07:59] LABS: HCT 37.7 % (39.6-50.0); HGB 12.7 g/dL (13.0-17.0); MCH 32.2 pg (27.0-32.0); MCHC 33.7 g/dL (32.0-37.0); MCV 95.4 FL (80.0-97.0); NRBC Per 100 WBC 0 X 10*3/uL (0.00-0.01); Platelet Count 171 X 10*3/uL (140-440); RBC 3.95 X 10*6/uL (4.40-5.60); RDW 12.4 % (11.5-14.5); WBC 2.68 X 10*3/uL (4.50-10.00)
[2024-09-28] MEDS: PANTOPRAZOLE 40 MG TABLET PO SCH (08:18)
[2024-09-28 11:34] LABS: Basophils # (A) 0.01 X 10*3/uL (0.00-0.10); Basophils % (A) 0.4 %; Eosinophils # (A) 0.03 X 10*3/uL (0.04-0.35); Eosinophils % (A) 1.1 %; Immature Grans, Automated 0.40 %; Lymphocytes # (A) 0.33 X 10*3/uL (0.90-5.00); Lymphocytes % (A) 12.3 %; Monocytes # (A) 0.31 X 10*3/uL (0.20-1.00); Monocytes % (A) 11.6 %; Neutrophils # (A) 1.99 X 10*3/uL (1.80-7.70); Neutrophils % (A) 74.2 %; RBC Morphology Normal (Normal)
--- NOTE | 2024-09-28 12:34 | P.PN ---
Subjective Progress Note Date: 09/28/24 SURGICAL PROGRESS NOTE CHIEF COMPLAINT: Mediport infection HISTORY OF PRESENT ILLNESS: Erythema and swelling around the Mediport site has decreased. Patient reports that the pain is less at the Mediport site as well as in the right side of his neck. Patient does report having vomiting yesterday. Today vomiting has resolved. Tolerating diet. Afebrile. WBC 2.68 Hgb 12.7. Blood culture result pending. PHYSICAL EXAM: VITAL SIGNS: Reviewed. GENERAL: Well-developed in no acute distress. CHEST: Right sided chest wall at Mediport site. Decreased erythema and swelling. Mild erythema noted along the right side of the neck but decreased from yesterday. Mild tenderness with palpation. ABDOMEN: Soft. Nondistended. Nontender. NEUROLOGIC: Alert and oriented. Cranial nerves II through XII grossly intact. ASSESSMENT: 1. Infected right chest wall Mediport with cellulitis improving with antibiotic 2. Rectal cancer PLAN: - No plans to remove Mediport at this time. Continue IV antibiotics per ID service. Awaiting blood culture results. - Await further recommendations per ID service Physician Cooker Casing note has been reviewed by physician. Signing provider agrees with the documented findings, assessment, and plan of care. Objective - Vital Signs Vital signs: Vital Signs Temp 98.7 F 09/28/24 07:47 Pulse 83 09/28/24 09:30 Resp 20 09/28/24 09:30 BP 128/76 09/28/24 07:47 Pulse Ox 98 09/28/24 07:47 FiO2 Intake & Output 09/27/24 09/28/24 09/28/24 18:59 06:59 18:59 Intake Total 358 Output Total 1620 Balance -1620 358 Intake: Oral 358 Output: Urine 1620 Other: Voiding Method Toilet Toilet Toilet # Voids 1 2 - Labs CBC & Chem 7: 09/28/24 04:34 09/28/24 04:34 Labs: Abnormal Lab Results - Last 24 Hours (Table) 09/28/24 Range/Units 04:34 WBC 2.68 L (4.50-10.00) X 10*3/uL RBC 3.95 L (4.40-5.60) X 10*6/uL Hgb 12.7 L (13.0-17.0) g/dL Hct 37.7 L (39.6-50.0) % MCH 32.2 H (27.0-32.0) pg MPV 9.4 L (9.5-12.2) [place] Lymphocytes # 0.33 L (0.90-5.00) X 10*3/uL Eosinophils # 0.03 L (0.04-0.35) X 10*3/uL Microbiology - Last 24 Hours (Table) 09/26/24 12:26 Blood Culture - Preliminary Blood
--- NOTE | 2024-09-28 15:20 | P.PN ---
Subjective Progress Note Date: 09/28/24 Principal diagnosis: Reason for follow-up is fever/Mediport site cellulitis Patient is a 44-year-old male with a past medical history significant for reflux hypertension recent diagnosis of rectal cancer for the patient is started on chemotherapy and did have a right sided Mediport placement on 08/26/2024 patient now presenting to the ER for evaluation of pain and swelling to the right chest wall and has been diagnosed with a Mediport site cellulitis CT did show cellulitis no evidence of any abscess. On today's evaluation that is 09/28/2024, Patient did have a fever of 103.1 F yesterday afternoon however is afebrile this morning patient denies having any chest pain shortness of breath or cough, the patient is currently on room air, patient denies any abdominal pain no diarrhea no nausea no vomiting patient mention discomfort to the right chest wall has decreased did not have open wound or any drainage. Patient white count is 2.68, creatinine 0.90 blood cultures currently pending Objective - Vital Signs Vital signs: Vital Signs Temp 98.7 F 09/28/24 07:47 Pulse 83 09/28/24 09:30 Resp 20 09/28/24 09:30 BP 128/76 09/28/24 07:47 Pulse Ox 98 09/28/24 07:47 FiO2 Intake & Output 09/27/24 09/28/24 09/28/24 18:59 06:59 18:59 Intake Total 358 Output Total 1620 Balance -1620 358 Intake: Oral 358 Output: Urine 1620 Other: Voiding Method Toilet Toilet Toilet # Voids 1 2 - Exam GENERAL DESCRIPTION: Middle-age male lying in bed in no distress RESPIRATORY SYSTEM: Unlabored breathing , decreased breath sounds at bases HEART: S1 S2 regular rate and rhythm , Right-sided chest wall Mediport site erythema has decreased there is no drainage no cord feeling ABDOMEN: Soft , no tenderness EXTREMITIES: No edema feet - Labs CBC & Chem 7: 09/28/24 04:34 09/28/24 04:34 Labs: Abnormal Lab Results - Last 24 Hours (Table) 09/28/24 Range/Units 04:34 WBC 2.68 L (4.50-10.00) X 10*3/uL RBC 3.95 L (4.40-5.60) X 10*6/uL Hgb 12.7 L (13.0-17.0) g/dL Hct 37.7 L (39.6-50.0) % MCH 32.2 H (27.0-32.0) pg MPV 9.4 L (9.5-12.2) FL Lymphocytes # 0.33 L (0.90-5.00) X 10*3/uL Eosinophils # 0.03 L (0.04-0.35) X 10*3/uL Microbiology - Last 24 Hours (Table) 09/26/24 12:26 Blood Culture - Preliminary Blood Assessment and Plan (1) Port or reservoir infection Current Visit: Yes Status: Acute Priority: High Code(s): T80.212A - LOCAL INFECTION DUE TO CENTRAL VENOUS CATHETER, INIT ENCNTR SNOMED Code(s): 640586105 (2) Cellulitis of chest wall Current Visit: Yes Status: Acute Priority: High Code(s): L03.313 - CELLULITIS OF CHEST WALL SNOMED Code(s): 81953618 Plan: 1patient presented hospital with the pain and swelling along with redness to the right chest wall Mediport site with some extension to the right side of the neck concerning for Mediport infection likely from gram-positive skin catie patient did have Doppler ultrasound that was negative for any DVT to the affected area. 2blood culture obtained which are currently pending 3patient did have a fever yesterday afternoon however the patient fever has resolved symptom dominguez the patient has improved as well continue with the vanc omycin and if the culture remained to be negative may consider a 10-day course of vancomycin pharmacy to dose to finish course of therapy Dictation was produced using [employer] dictation software. please excuse any grammatical, word or spelling errors. Time with Patient: Less than 30
[2024-09-29 07:41] VITALS: RESP 20
[2024-09-29 08:04] LABS: Basophils # (A) 0.02 X 10*3/uL (0.00-0.10); Basophils % (A) 0.7 %; Eosinophils # (A) 0.13 X 10*3/uL (0.04-0.35); Eosinophils % (A) 4.4 %; HCT 33.7 % (39.6-50.0); HGB 11.5 g/dL (13.0-17.0); Immature Grans, Automated 0.30 %; Lymphocytes # (A) 0.99 X 10*3/uL (0.90-5.00); Lymphocytes % (A) 33.8 %; MCH 32.7 pg (27.0-32.0); MCHC 34.1 g/dL (32.0-37.0); MCV 95.7 FL (80.0-97.0); Monocytes # (A) 0.59 X 10*3/uL (0.20-1.00); Monocytes % (A) 20.1 %; NRBC Per 100 WBC 0 X 10*3/uL (0.00-0.01); Neutrophils # (A) 1.19 X 10*3/uL (1.80-7.70); Neutrophils % (A) 40.7 %; Platelet Count 190 X 10*3/uL (140-440); RBC 3.52 X 10*6/uL (4.40-5.60); RDW 12.6 % (11.5-14.5); WBC 2.93 X 10*3/uL (4.50-10.00)
[2024-09-29] MEDS ORDERED: VANCOMYCIN TROUGH DUE 1 EACH MISC MISCELLANE ONE (11:00)
[2024-09-29 11:05] LABS: African American GFR (CKD) >90 (>60 ml/min/1.73 sqM); Non-African American GFR(CKD) >90 (>60 ml/min/1.73 sqM)
--- NOTE | 2024-09-29 12:03 | P.PN ---
Subjective Progress Note Date: 09/29/24 SURGICAL PROGRESS NOTE CHIEF COMPLAINT: Mediport infection HISTORY OF PRESENT ILLNESS: Patient is MediPort site improvement in pain and erythema. Planning for discharge today. They are arranging outpatient antibiotics per Dr. Haas's recommendations. Afebrile. WBC 2.93 PHYSICAL EXAM: VITAL SIGNS: Reviewed. GENERAL: Well-developed in no acute distress. CHEST: Right sided chest wall at Mediport site. Decreased erythema and swelling. Mild erythema and tenderness noted along the right side of the neck but decreased from yesterday. ABDOMEN: Soft. Nondistended. Nontender. NEUROLOGIC: Alert and oriented. Cranial nerves II through XII grossly intact. ASSESSMENT: 1. Infected right chest wall Mediport with cellulitis improving with antibiotic 2. Rectal cancer PLAN: - No plans to remove Mediport at this time. - Discharge antibiotics per ID service - Okay to discharge from surgical standpoint Physician Ceiling Insulation Blower note has been reviewed by physician. Signing provider agrees with the documented findings, assessment, and plan of care. Objective - Vital Signs Vital signs: Vital Signs Temp 97.7 F 09/29/24 07:38 Pulse 78 09/29/24 07:38 Resp 20 09/29/24 07:38 BP 131/81 09/29/24 07:38 Pulse Ox 100 09/29/24 07:38 FiO2 Intake & Output 09/28/24 09/29/24 09/29/24 18:59 06:59 18:59 Intake Total 1556 600 Balance 1556 600 Intake: Oral 1556 Other 600 Other: Voiding Method Toilet Toilet Toilet # Voids 3 1 - Labs CBC & Chem 7: 09/29/24 05:25 09/29/24 10:40 Labs: Abnormal Lab Results - Last 24 Hours (Table) 09/29/24 Range/Units 05:25 WBC 2.93 L (4.50-10.00) X 10*3/uL RBC 3.52 L (4.40-5.60) X 10*6/uL Hgb 11.5 L (13.0-17.0) g/dL Hct 33.7 L (39.6-50.0) % MCH 32.7 H (27.0-32.0) pg Neutrophils # 1.19 L (1.80-7.70) X 10*3/uL Microbiology - Last 24 Hours (Table) 09/27/24 20:07 Blood Culture - Preliminary Blood 09/26/24 12:26 Blood Culture - Preliminary Blood
[2024-09-29 14:27] VITALS: BP 122/79; PULSE 69; TEMP 98.1
--- NOTE | 2024-09-29 16:52 | PN ---
PROGRESS NOTE SUBJECTIVE: A 44-year-old white male with cellulitis of the right chest, negative blood culture. Vascular and Infectious Disease did not want to pull the cath. Infections improved at this time. He can go home with PICC. IV vancomycin for 10 days. OBJECTIVE: VITAL SIGNS: Stable, afebrile. CARDIOVASCULAR: S1, S2. LUNGS: Clear. GI: Soft. HEMATOLOGY: Negative Homans. CHEST: in the right anterior chest is clear. ASSESSMENT AND PLAN: Cellulitis of the chest, possible port infection, home on PICC line IV antibiotics. Prognosis guarded. MMODL / IJN: [id number] /
--- NOTE | 2024-09-29 16:52 | HP ---
HISTORY AND PHYSICAL HISTORY OF PRESENT ILLNESS: A 44-year-old came in with referral from Oncology, for complaints with painful red swollen, right upper chest port infection with erythema, edema and possible abscess. He is being treated for rectal cancer. HOME MEDICATIONS: 1. Zestril 10 mg daily. 2. Prilosec 20 daily. ALLERGIES: Negative. REVIEW OF SYSTEMS: A 14-point review of systems otherwise is negative. No fevers, chills. PAST MEDICAL HISTORY: Hypertension, GERD, rectal cancer recently diagnosed. PAST SURGICAL HISTORY: Right shoulder surgery. PHYSICAL EXAMINATION: CARDIOVASCULAR: S1, S2. LUNGS: Clear. GI: Soft. NEUROLOGIC: Cranial nerves intact. PSYCH: Fair mood and affect. MUSCULOSKELETAL: Range of motion full x4. HEMATOLOGY: Negative Homans. INTEGUMENT: Shows some redness and swelling in the right upper quadrant of the chest, right thoracic spine with redness and erythema over the port area, suspect abscess, cellulitis of the port, rectal cancer, admitted for IV antibiotics. Port removal, will be consult for Surgery. Vascular Surgery . Prognosis is guarded. Continue IV antibiotics. Dr. Haas consult. MMODL / IJN: [id number] /
--- NOTE | 2024-09-30 14:21 | P.PN ---
Subjective Progress Note Date: 09/29/24 Principal diagnosis: Reason for follow-up is fever/Mediport site cellulitis Patient is a 44-year-old male with a past medical history significant for reflux hypertension recent diagnosis of rectal cancer for the patient is started on chemotherapy and did have a right sided Mediport placement on 08/26/2024 patient now presenting to the ER for evaluation of pain and swelling to the right chest wall and has been diagnosed with a Mediport site cellulitis CT did show cellulitis no evidence of any abscess. On today's evaluation that is 09/29/2024,the patient denies any fever or any chills, patient is breathing comfortably on room air, the patient denies chest pain shortness of breath and no significant cough, patient denies abdominal pain, no nausea vomiting or diarrhea. Pain to the right chest wall has decreased nursing staff was able to access the port and did not mention any purulent drainage. Patient white count is 2.93, creatinine 0.82 blood culture remains to be negative Objective - Vital Signs Vital signs: Vital Signs Temp 98.7 F 09/29/24 01:51 Pulse 89 09/29/24 01:51 Resp 18 09/29/24 01:51 BP 138/77 09/29/24 01:51 Pulse Ox 97 09/29/24 01:51 FiO2 Intake & Output 09/28/24 09/29/24 09/29/24 18:59 06:59 18:59 Intake Total 1556 600 Balance 1556 600 Intake: Oral 1556 Other 600 Other: Voiding Method Toilet Toilet # Voids 3 1 - Exam GENERAL DESCRIPTION: Middle-age male lying in bed in no distress RESPIRATORY SYSTEM: Unlabored breathing , decreased breath sounds at bases HEART: S1 S2 regular rate and rhythm , Right-sided chest wall Mediport site erythema has decreased there is no drainage no cord feeling ABDOMEN: Soft , no tenderness EXTREMITIES: No edema feet - Labs CBC & Chem 7: 09/29/24 05:25 09/29/24 10:40 Labs: Abnormal Lab Results - Last 24 Hours (Table) 09/28/24 Range/Units 04:34 WBC 2.68 L (4.50-10.00) X 10*3/uL RBC 3.95 L (4.40-5.60) X 10*6/uL Hgb 12.7 L (13.0-17.0) g/dL Hct 37.7 L (39.6-50.0) % MCH 32.2 H (27.0-32.0) pg MPV 9.4 L (9.5-12.2) FL Lymphocytes # 0.33 L (0.90-5.00) X 10*3/uL Eosinophils # 0.03 L (0.04-0.35) X 10*3/uL Microbiology - Last 24 Hours (Table) 09/27/24 20:07 Blood Culture - Preliminary Blood 09/26/24 12:26 Blood Culture - Preliminary Blood Assessment and Plan (1) Port or reservoir infection Status: Acute Priority: High Code(s): T80.212A - LOCAL INFECTION DUE TO CENTRAL VENOUS CATHETER, INIT ENCNTR SNOMED Code(s): 098543674 (2) Cellulitis of chest wall Status: Acute Priority: High Code(s): L03.313 - CELLULITIS OF CHEST WALL SNOMED Code(s): 27766594 Plan: 1patient presented hospital with the pain and swelling along with redness to the right chest wall Mediport site with some extension to the right side of the neck concerning for Mediport infection likely from gram-positive skin catie patient did have Doppler ultrasound that was negative for any DVT to the affe cted area. 2blood culture obtained which are currently pending 3patient did have resolution of the fever the patient white count has normalized port has been accessed without any purulent drainage antibiotic switched to daptomycin plan is for 10-day course and close outpatient follow-up question concern answered prescription provided to the infusion company Dictation was produced using [employer] software. please excuse any grammatical, word or spelling errors.
== END 2024-09-29 15:35 | disposition home or self-care (01) | DRG 315 ==
LOC: EC 08:11 → 5NMEDONC 13:36 → OBSVTOIN 13:37 → 5NMEDONC 14:04
PROVIDERS: ADMIT Family Medicine; ATTEND Family Medicine
DX: T80.212A Local infection due to central venous catheter, initial encounter (principal); C20 Malignant neoplasm of rectum; L03.313 Cellulitis of chest wall; K21.9 Gastro-esophageal reflux disease without esophagitis; F90.9 Attention-deficit hyperactivity disorder, unspecified type; I10 Essential (primary) hypertension; Z79.899 Other long term (current) drug therapy; Y84.8 Other medical procedures as the cause of abnormal reaction of the patient, or of later complication, without mention of misadventure at the time of the procedure
CPT/HCPCS: 36415; 71046; 71250; 80053; 80202; 82565; 83605; 85025; 86140; 87040; 96365; 96366; 96375; 99285